=== PATIENT | female | born 1940 | race Caucasian/White ===

== ENCOUNTER 2016-12-12 10:59 | Emergency (ER) | payer MEDICARE, BC ==
[2016-12-12 11:28] LABS: Hematocrit 39.6 % (37.0-47.0); Hemoglobin 13.1 gm/dL (12.5-16.0); Mean Corpuscular Hemoglobin 29.8 pg (27-31); Mean Corpuscular Hgb Conc 33.1 g/dl (32-36); Mean Platelet Volume 10.1 fl (6.0-9.5); Neutrophil # 9.3 K/mm3 (1.3-6.0); Neutrophil % 79.3 % (42-75.0); Platelet Count 363 K/mm3 (150-450); Red Cell Distribution Width 14.6 % (11.5-14.0); White Blood Count 11.7 K/mm3 (4.0-10.5)
[2016-12-12 11:29] LABS: Urine Bilirubin Negative (NEGATIVE); Urine Blood 25 /ul (NEGATIVE); Urine Ketone Negative (NEGATIVE); Urine Nitrite Negative (NEGATIVE); Urine Protein 100 mg/dL (NEGATIVE); Urine Specific Gravity 1.015 SP.GR. (1.005-1.010); Urine Urobilinogen Normal (NORMAL)
[2016-12-12 11:39] LABS: Albumin * 3.4 gm/dl (3.4-5.0); Anion Gap 15.2 mmol/L (6.8-13.8); BUN/Creatinine Ratio 12.3 (9.0-21.6); Bilirubin, Total 0.8 mg/dL (0.0-1.1); Ca. Corrected For Albumin 9.6 mg/dL (8.4-10.2); Calcium * 9.4 mg/dL (7.9-10.9); Carbon Dioxide 26.9 mmol/L (24-32.6); Potassium 4.1 mmol/L (3.4-4.6); Urine Appearance Clear; Urine Color Yellow
[2016-12-12 11:40] LABS: Urine Bacteria None Seen; Urine RBC TRACE /hpf (0-5); Urine WBC None Seen /hpf (0-5)
--- NOTE | 2016-12-12 12:25 | ERNOTE ---
Abdominal HPI - Narrative Date of Service: 12/12/16 - General Chief Complaint: Abdominal Pain Time Seen by Provider: 12/12/16 11:47 Source: patient Exam Limitations: no limitations - Immun/Allergies/Home Medications Immunizatons: IMMUNIZATION HX Immunizations Up to Date Yes History of Influenza Vaccine Yes Hx Pneumococcal Vaccination Yes Allergies/Adverse Reactions: Allergies No Known Allergies Allergy (Verified 12/12/16 11:09) Home Medications: HOME MEDICATIONS Levofloxacin [Levaquin] 750 mg PO DAILY #10 tab 12/12/16 [Last Taken Unknown] metroNIDAZOLE [Flagyl] 500 mg PO QID #40 tab 12/12/16 [Last Taken Unknown] - History of Present Illness Narrative: Pt. comes in with c/o LUQ and L flank pain for four days. Pt. denies any sob, cp, nvd, FEVER, alleviating factors, or prehospital treatment. Pt. does state that deep breathing aggravates the symptoms. Review of Systems - Review of Systems Constitutional: Present: no symptoms reported. Absent: recent illness, fever, chills, fatigue, malaise EYE: Present: no symptoms reported ENT: Present: no symptoms reported Respiratory: Present: no symptoms reported. Absent: shortness of breath, cough , wheezing Cardiology: Present: no symptoms reported. Absent: chest pain, palpitations, edema Gastrointestinal/Abdominal: Present: abdominal pain - LUQ. Absent: nausea, vomiting, diarrhea Genitourinary: Present: no symptoms reported. Absent: decreased urinary output Musculoskeletal: Present: back pain - L flank Skin: Present: no symptoms reported. Absent: rash, dryness, lesions, lumps, change in color Neurological: Present: no symptoms reported. Absent: headache, dizziness/light- headedness, numbness, tingling All Other Systems: All systems neg except as marked - Patient's Past Medical History Patient History - Medical: No pertinent hx Patient History - Cancer: Myeloma Patient History - Surgical Procedures: Colonoscopy, Hysterectomy - Social History Smoking Status: Never smoker Have you smoked in the past 12 months: No Do you dip or chew tobacco: No Alcohol Use: none Drug Use: none Physical Exam - Physical Exam General Appearance: Present: wd/wn, alert, no apparent distress Eye Exam: Normal inspection: bilateral, PERRL: bilateral, EOMI: bilateral Ears, Nose, Throat: Present: normal ENT inspection, hearing grossly normal, normal pharynx Neck: Present: normal inspection, nontender. Absent: lymphadenopathy (R), lymphadenopathy (L) Respiratory: Present: no respiratory distress, normal breath sounds, no accessory muscle use, chest nontender Cardiovascular/Chest: Present: regular rate, rhythm, no murmur, normal peripheral pulses Gastrointestinal/Abdominal: Present: normal bowel sounds, nondistended, soft, no organomegaly, tenderness - LUQ. 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 Absent: pallor, skin rash ED Progress - Results and Orders Patient's Lab Results:: I have reviewed the patient's lab results. - Vital Signs Patient's Vital Signs:: I have reviewed the patient's vital signs. Vital Signs: Vital Signs 12/12/16 11:04 Temperature 36 C L Pulse Rate 93 Respiratory 14 Rate Blood Pressure 141/87 O2 Sat by Pulse 100 Oximetry - X-Ray X-Ray #1 X-Ray: abdomen Interpretation: Reviewed by me X-ray Comments: moderate fecal retention, no Obstruction, no free air - CT/Ultrasound CT/Ultrasound Narrative: Abd CT positive for renal cysts, 1-2 mm renal stones and descending diverticulitis - Progress/Reassessment Chief Complaint: Abdominal Pain Departure - Departure Clinical Impression: Renal insufficiency, mild, Renal cysts, acquired, bilateral Diverticulitis Qualifiers: Diverticulitis site: large intestine Diverticulitis bleeding: without bleeding Diverticulitis complication: without perforation or abscess Qualified Code(s): K57.32 - Diverticulitis of large intestine without perforation or abscess without bleeding Disposition: Home self-care Condition: Good Instructions: Diverticulitis, [id number] Additional Instructions: Please follow up with primary provider in 2-3 days for follow up and to discuss colonoscopy Referrals: STEPHANIE FAUST [Primary Care Provider] - Prescriptions: Levofloxacin [Levaquin] 750 mg PO DAILY #10 tab metroNIDAZOLE [Flagyl] 500 mg PO QID #40 tab
[2016-12-12 12:39] VITALS: BP 139/73
== END 2016-12-12 13:00 | disposition home or self-care (01) ==
LOC: ER 10:59
DX: N28.9 Disorder of kidney and ureter, unspecified (principal); N28.1 Cyst of kidney, acquired; K57.32 Diverticulitis of large intestine without perforation or abscess without bleeding; Z90.710 Acquired absence of both cervix and uterus; Z85.89 Personal history of malignant neoplasm of other organs and systems